=== PATIENT | male | born 1970 | race Caucasian/White ===

== ENCOUNTER → 2020-08-10 | Outpatient (CLI) | payer OTHER ==
[~2020-08-10] MED LIST: AMIO200T42 PO; AMOX1TAB61 PO; ATOR10TA PO; CARV12.52 PO; CARV6.2512 PO; INSU100I28 SQ-INSULIN; INSU100V8 SQ; INSU300I SL; LISI-170 PO; METF10002 PO; SPIR25TA5 PO
[2020-08-10 13:49] LABS: ANION GAP 7 mmol/L (5-15); CALCIUM 9.4 mg/dL (8.5-10.1); CHLORIDE 110 mmol/L (98-107)
[2020-08-10 13:54] LABS: ALANINE AMINOTRANSFERASE 17 U/L (12-78); ALKALINE PHOSPHATASE 55 U/L (45-117); BILIRUBIN,TOTAL 0.3 mg/dL (0.2-1.0); CREATININE 1.36 mg/dL (0.7-1.3); TOTAL PROTEIN 7.8 g/dL (6.4-8.2)
== END | disposition home or self-care (01) ==
LOC: STAR 12:43
PROVIDERS: ATTEND Internal Medicine Gastroenterology
DX: Z01.812 Encounter for preprocedural laboratory examination (principal); Z20.828 Contact with and (suspected) exposure to other viral communicable diseases; Z12.11 Encounter for screening for malignant neoplasm of colon; I45.10 Unspecified right bundle-branch block
CPT/HCPCS: 36415; 80053; 87635; 93005

== ENCOUNTER 2020-08-14 10:21 | Day surgery (SDC) | payer OTHER ==
[~2020-08-14] VITALS: Ht 193 cm; Wt 151.9 kg
[2020-08-14] MEDS ORDERED: CHLORHEXIDINE 15 ML UDC MM STA (10:50)
[2020-08-14] MEDS ORDERED: LACTATED RINGERS 1,000 ML IV SCH (10:50)
[2020-08-14 10:51] VITALS: BP 135/87
[2020-08-14] MEDS ORDERED: CHLORHEXIDINE 15 ML UDC ONE (10:56)
[2020-08-14] MEDS ORDERED: PROPOFOL 10 MG/ML, 50ML ONE (12:30)
[2020-08-14] MEDS ORDERED: ACETAMINOPHEN 325 MG TABLET PO PRN (13:30)
[2020-08-14] MEDS ORDERED: HYDROmorphone 1 MG/ML, 1ML INJ IVPush PRN (13:30)
[2020-08-14] MEDS ORDERED: FENTANYL PF 100 MCG/2ML IV PRN (13:30)
[2020-08-14] MEDS ORDERED: ONDANSETRON 2MG/ML, 2ML IVPush PRN (13:30)
[2020-08-14] MEDS ORDERED: KETOROLAC 30 MG/1 ML IVPush PRN (13:30)
[2020-08-14] MEDS ORDERED: OXYcodone 5 MG/5 ML ORAL.SOL UDC PO PRN (13:30)
== END 2020-08-14 14:15 | disposition home or self-care (01) ==
LOC: OUT 10:21
PROVIDERS: ATTEND Internal Medicine Gastroenterology
DX: Z12.11 Encounter for screening for malignant neoplasm of colon (principal); K63.5 Polyp of colon; K62.1 Rectal polyp; K57.30 Diverticulosis of large intestine without perforation or abscess without bleeding; K64.9 Unspecified hemorrhoids; I11.0 Hypertensive heart disease with heart failure; I50.9 Heart failure, unspecified; G47.33 Obstructive sleep apnea (adult) (pediatric); E66.01 Morbid (severe) obesity due to excess calories; Z79.84 Long term (current) use of oral hypoglycemic drugs; Z79.899 Other long term (current) drug therapy; Z88.8 Allergy status to other drugs, medicaments and biological substances
CPT/HCPCS: 45380; 82962; 88305; J2704; J7120